=== PATIENT | male | born 1965 | race Caucasian/White ===

== ENCOUNTER 2021-04-05 15:58 | Emergency (ER) | payer MEDICARE ==
[~2021-04-05] VITALS: Ht 172.7 cm; Wt 70.3 kg
== END 2021-04-05 17:30 | disposition home or self-care (01) ==
LOC: ED 15:58
PROC: 0HQEXZZ Repair Left Lower Arm Skin, External Approach (ICD-10-PCS; principal; 2021-04-05)
DX: S51.812A Laceration without foreign body of left forearm, initial encounter (principal); Z23 Encounter for immunization; W26.8XXA Contact with other sharp object(s), not elsewhere classified, initial encounter; Y99.0 Civilian activity done for income or pay
CPT/HCPCS: 12001; 90471; 90715; 99282-25